=== PATIENT | female | born 1985 | race Asian ===

== ENCOUNTER 2018-11-11 06:59 | Day surgery (SDC) | payer BC ==
[~2018-11-11] VITALS: Ht 157.5 cm; Wt 62.1 kg
[~2018-11-11 06:59] MED LIST: LACTATED RINGERS 1,000 ML IV SCH
[2018-11-11 07:54] LABS: BASOPHILS % 1.1 % (0.0-2.0); EOSINOPHILS % 2.6 % (0.0-5.0); HEMOGLOBIN. 12.6 g/dL (12.0-16.0); LYMPHOCYTES % 20.5 % (20.0-50.0); MEAN CORPUSCULAR HEMOGLOBIN 28.3 pg (28.0-32.0); MEAN CORPUSCULAR VOLUME 85.5 fL (81.0-99.0); MEAN PLATELET VOLUME 7.9 fl (7.4-10.4); MONOCYTES % 6.1 % (2.0-8.0); NEUTROPHILS % 69.7 % (40.0-76.0); PLATELET 310 x1000/uL (130-400); RED BLOOD CELL COUNT 4.45 mill/uL (4.2-5.4); RED CELL DISTRIBUTION WIDTH 13.5 % (11.6-14.6)
[2018-11-11 07:57] LABS: CLARITY URINE CLEAR (CLEAR); COLOR URINE YELLOW (YELLOW); KETONES URINE NEGATIVE (NEGATIVE); LEUKOCYTE ESTERASE URINE NEGATIVE (NEGATIVE); NITRITE URINE NEGATIVE (NEGATIVE); OCCULT BLOOD URINE NEGATIVE (NEGATIVE); PH URINE 5.5 (4.5-8.0); PROTEIN URINE NEGATIVE (NEGATIVE); SPECIFIC GRAVITY URINE 1.005 (1.005-1.030); UROBILINOGEN URINE 0.2 E.U./dL (0.2-1.0)
[2018-11-11 08:04] LABS: PARTIAL THROMBOPLASTIN TIME 31.2 sec (23.4-31.0)
[2018-11-11 08:13] LABS: CHLORIDE 107 mEq/L (98-107)
[2018-11-11 08:14] LABS: UCG SCREEN NEGATIVE
[2018-11-11] MEDS ORDERED: METHYLENE BLUE 50 MG/10 ML AMP IV ONE (09:12)
[2018-11-11] MEDS ORDERED: SODIUM CHLORIDE 0.9% 1,000 ML ONE (09:12)
[2018-11-11] MEDS ORDERED: SKIN ADHESIVE 0.7 GM EA TOP ONE (09:12)
[2018-11-11] MEDS ORDERED: BUPIVACAINE HCL/PF 0.25% (2.5MG/ML) 10ML ONE (09:12)
[2018-11-11] MEDS ORDERED: GLYCOPYRROLATE 0.2 MG/ML 2ML VIAL ONE ×2 (09:21→11:27)
[2018-11-11] MEDS ORDERED: MIDAZOLAM HCL 2 MG/2 ML VIAL ONE (09:21)
[2018-11-11] MEDS ORDERED: ROCURONIUM BROMIDE 10MG/ML VIAL 5ML IV ONE (09:21)
[2018-11-11] MEDS ORDERED: PROPOFOL 200MG/20ML VIAL IV ONE (09:21)
[2018-11-11] MEDS ORDERED: NEOSTIGMINE METHYLSULFATE 1MG/ML 10 ML VIAL ONE ×2 (09:21→11:13)
[2018-11-11] MEDS ORDERED: FENTANYL CITRATE/PF 50MCG/ML 2ML VIAL ONE (09:21)
[2018-11-11] MEDS ORDERED: ONDANSETRON HCL 4MG/2ML INJ ONE (09:24)
[2018-11-11] MEDS ORDERED: DEXAMETHASONE 4MG/ML 1ML VIAL ONE (09:24)
[2018-11-11] MEDS ORDERED: SODIUM CHLORIDE 0.9% 10ML VIAL ONE (09:39)
[2018-11-11] MEDS ORDERED: CEFAZOLIN SODIUM 1000MG/VIAL ONE (09:39)
[2018-11-11] MEDS ORDERED: ONDANSETRON HCL 4MG/2ML INJ IV PRN (09:45)
[2018-11-11] MEDS ORDERED: LABETALOL HCL 20MG/4ML CARPUJECT IV PRN (09:45)
[2018-11-11] MEDS ORDERED: MEPERIDINE HCL/PF 25MG/ML CPJ IV PRN (09:45)
[2018-11-11] MEDS ORDERED: HYDRALAZINE 20MG/ML VIAL ONE (10:24)
[2018-11-11] MEDS ORDERED: ACET-2708 PO (11:27)
[2018-11-11] MEDS: HYDROMORPHONE HCL/PF 2MG/ML CPJ IV PRN ×2 (12:25→13:30)
[2018-11-11 13:30] VITALS: BP 116/70
[2018-11-11] MEDS ORDERED: METOCLOPRAMIDE HCL 10MG/2ML VIAL IV NR (15:44)
[2018-11-11] MEDS ORDERED: METOCLOPRAMIDE HCL 10MG/2ML VIAL ONE (15:51)
== END 2018-11-11 16:00 | disposition home or self-care (01) ==
LOC: OR 06:59
PROVIDERS: ATTEND Obstetrics & Gynecology Obstetrics
DX: N85.00 Endometrial hyperplasia, unspecified (principal); N92.0 Excessive and frequent menstruation with regular cycle; N83.201 Unspecified ovarian cyst, right side; N83.202 Unspecified ovarian cyst, left side; Z82.49 Family history of ischemic heart disease and other diseases of the circulatory system
CPT/HCPCS: 36415; 58350; 58558; 58662; 80048; 81003; 81025; 85025; 85610; 85730; 88305; A4216; J0360; J0690; J1100; J1170; J2250; J2405; J2710; J2765; J3010; J3490; J7030; J2704; Q9968